=== PATIENT | female | born 1960 | race Caucasian/White ===

== ENCOUNTER → 2023-10-31 08:00 | Outpatient (REF) | payer MEDICARE, SELFPAY | LOC: RAD 08:00 | PROVIDERS: ATTENDING PHYSICIAN Internal Medicine Cardiovascular Disease; FAMILY PHYSICIAN Family Medicine; REFERRING PHYSICIAN Internal Medicine Pulmonary Disease | DX: R07.89 Other chest pain (principal) | CPT/HCPCS: 75574; Q9967 ==

== ENCOUNTER → 2023-11-13 09:00 | Outpatient (REF) | payer MEDICARE, SELFPAY | LOC: RCS 09:00 | PROVIDERS: ATTENDING PHYSICIAN Internal Medicine Cardiovascular Disease; FAMILY PHYSICIAN Family Medicine | DX: R06.09 Other forms of dyspnea (principal); R07.89 Other chest pain | CPT/HCPCS: 93306; 93356 ==

== ENCOUNTER → 2025-03-10 14:49 | Outpatient (REF) | payer MEDICARE, SELFPAY | LOC: RCS 14:49 | PROVIDERS: ATTENDING PHYSICIAN Internal Medicine Cardiovascular Disease; FAMILY PHYSICIAN Family Medicine | DX: I49.3 Ventricular premature depolarization (principal); R00.2 Palpitations; R06.09 Other forms of dyspnea | CPT/HCPCS: 93306; 93356 ==